=== PATIENT | male | born 2000 | race Caucasian/White ===

== ENCOUNTER 2023-10-24 18:28 | Emergency (ER) | payer OTHER ==
[2023-10-24 18:55] VITALS: RESP 18; TEMP 98
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
[2023-10-24 21:46] VITALS: BP 118/70; PULSE 68
== END 2023-10-24 21:46 | disposition home or self-care (01) ==
LOC: EC 18:28
DX: R51.9 Headache, unspecified
CPT/HCPCS: 70450; 99283